=== PATIENT | female | born 1955 | race Caucasian/White ===

== ENCOUNTER 2017-08-10 08:19 | Emergency (ER) | payer OTHER ==
[2017-08-10 08:27] VITALS: BP 149/96
--- NOTE | 2017-08-10 09:02 | UC ---
Skin Complaint HPI - HPI Summary HPI Summary: FOUND AN ENGORGED TICK ATTACHED TO HER LEFT INNER THIGH THIS MORNING. REMOVED ENTIRELY AT HOME. UNKNOWN HOW LONG IT WAS ATTACHED FOR. - History of Current Complaint Chief Complaint: UCSkin Time Seen by Provider: 08/10/17 08:54 Stated Complaint: TICK BITE Hx Obtained From: Patient Onset Severity: Mild Current Severity: None Pain Intensity: 0 Pain Scale Used: 0-10 Numeric Location: Discrete - LEFT INNER THIGH Aggravating Factor(s): Nothing Alleviating Factor(s): Nothing Associated Signs & Symptoms: Positive: Negative Related History: Insect Bite/Sting - Allergy/Home Medications Allergies/Adverse Reactions: Allergies Allergy/AdvReac Type Severity Reaction Status Date / Time Penicillins Allergy Rash Verified 08/10/17 08:27 Review of Systems Constitutional: Negative Skin: Other - TICK BITE LEFT INNER THIGH Respiratory: Negative Cardiovascular: Negative Gastrointestinal: Negative All Other Systems Reviewed And Are Negative: Yes PMH/Surg Hx/FS Hx/Imm Hx Respiratory History: Asthma - Surgical History Surgical History: Yes Surgery Procedure, Year, and Place: RIGHT KNEE SURGERY - Family History Known Family History: Negative: Hypertension - Social History Alcohol Use: Rare Substance Use Type: None Smoking Status (MU): Never Smoked Tobacco Physical Exam Triage Information Reviewed: Yes Appearance: Well-Appearing, No Pain Distress, Well-Nourished Vital Signs: Initial Vital Signs Temp 96 F 08/10/17 08:25 Pulse 68 08/10/17 08:25 Resp 15 08/10/17 08:25 BP 149/96 08/10/17 08:25 Pulse Ox 100 08/10/17 08:25 Vital Signs Reviewed: Yes Eyes: Positive: Conjunctiva Clear ENT: Positive: Hearing grossly normal Neck: Positive: Supple Respiratory: Positive: No respiratory distress, No accessory muscle use Cardiovascular: Positive: Pulses Normal Abdomen Description: Positive: Soft Musculoskeletal: Positive: No Edema Neurological: Positive: Alert Psychological: Positive: Age Appropriate Behavior Skin: Negative: rashes Course/Dx - Diagnoses Provider Diagnoses: TICK BITE/LYME PEP Discharge - Sign-Out/Discharge Documenting (check all that apply): Discharge/Admit/Transfer - Discharge Plan Condition: Stable Disposition: HOME Prescriptions: Doxycycline Monohydrate [Doxycycline Monohydrate] 2 cap PO ONCE #2 cap Patient Education Materials: Tick Bite (ED) Referrals: No Primary Care Phys,NOPCP [Primary Care Provider] - Additional Instructions: You received an rx for 200mg of doxycycline for prophylaxis against Lyme disease. The Infectious Disease Society of [place] (IDSA) does not generally recommend antimicrobial prophylaxis for prevention of Lyme disease after a recognized tick bite. However, in areas that are highly endemic for Lyme disease, a single dose of doxycycline may be offered to adult patients (200 mg) who are not and to children older than 8 years of age (4 mg/kg up to a maximum dose of 200 mg) when all of the following circumstances exist: CRITERIA FOR RECEIVING PROPHYLACTIC TREATMENT FOR LYME DISEASE 1) TICK ATTACHED FOR AT LEAST 36 HRS 2) TICK IS AN ADULT OR [place] DE[place] TICK 3) YOU LIVE IN AN AREA WHERE LYME DISEASE IS PREVALENT (i.e., [place], [place], [place], [place], [place] , [place], [place], [place], [place], [place], [place], [place], [place], [place]) 4) YOU HAVE NO CONTRAINDICATION TO THE MEDICATION (DOXYCYCLINE) 5) PROPHYLAXIS IS BEGUN WITHIN 72 HRS OF TICK REMOVAL YOUR CHANCES OF DEVELOPING LYME DISEASE ARE EXTREMELY SMALL. BE VIGILANT OF YOUR SYMPTOMS AND DON'T HESITATE TO GET SEEN AGAIN IF YOU DEVELOP UNEXPLAINED FEVER, HEADACHE, JOINT PAIN, BODY ACHES, RASH OR ANY OTHER CONCERNING SYMPTOMS. Antibiotic treatment following a tick bite is not recommended as a means to prevent anaplasmosis, babesiosis, ehrlichiosis, or [place] spotted fever. There is no evidence this practice is effective, and it may simply delay onset of disease. Instead, persons who experience a tick bite should be alert for symptoms suggestive of tickborne illness and consult a physician if fever, rash, or other symptoms of concern develop. CALL THE NUMBER BELOW FOR ASSISTANCE IN ESTABLISHING WITH A PCP An additional resource available to assist in finding the appropriate physician for your health care needs is the [facility] ([facility]). You may contact them by calling [phone]. - Billing Disposition and Condition Condition: STABLE Disposition: Home
== END 2017-08-10 09:13 | disposition home or self-care (01) ==
LOC: UCEAST 08:19
DX: S70.362A Insect bite (nonvenomous), left thigh, initial encounter (principal); W57.XXXA Bitten or stung by nonvenomous insect and other nonvenomous arthropods, initial encounter; Y93.9 Activity, unspecified; Y92.9 Unspecified place or not applicable; J45.909 Unspecified asthma, uncomplicated; Z88.0 Allergy status to penicillin
CPT/HCPCS: 99212; G0463

== ENCOUNTER 2018-01-02 12:10 | Emergency (ER) | payer OTHER ==
[2018-01-02] MEDS ORDERED: Ondansetron ODT TAB* 4 MG PO ONE (12:26)
--- NOTE | 2018-01-02 12:38 | UC ---
Abdominal Pain Female HPI - HPI Summary HPI Summary: Onset of left lower quadrant abdominal pain this morning. Also reports right flank pain, headache and nausea. Vomited one time on the way here. No previous history of kidney stones. - History of Current Complaint Chief Complaint: UCAbdominalPain Stated Complaint: L SIDED PAIN Time Seen by Provider: 01/02/18 12:26 Hx Obtained From: Patient Onset/Duration: Sudden Onset, Lasting Hours, Still Present Timing: Constant Severity Initially: Moderate Severity Currently: Severe Pain Intensity: 10 Pain Scale Used: 0-10 Numeric Location: Discrete At: LLQ Radiates: Yes Radiates to: Flank Character: Sharp Aggravating Factor(s): Nothing Alleviating Factor(s): Nothing Associated Signs and Symptoms: Positive: Back Pain, Decreased Appetite, Nausea, Vomiting. Negative: Fever Allergies/Adverse Reactions: Allergies Allergy/AdvReac Type Severity Reaction Status Date / Time Penicillins Allergy Rash Verified 01/02/18 12:23 PMH/Surg Hx/FS Hx/Imm Hx Respiratory History: Asthma - Surgical History Surgical History: Yes Surgery Procedure, Year, and Place: RIGHT KNEE SURGERY - Family History Known Family History: Negative: Hypertension - Social History Alcohol Use: Rare Substance Use Type: None Smoking Status (MU): Never Smoked Tobacco Review of Systems Constitutional: Negative Respiratory: Negative Cardiovascular: Negative Gastrointestinal: Abdominal Pain, Vomiting, Nausea Genitourinary: Other - RIGHT FLANK PAIN All Other Systems Reviewed And Are Negative: Yes Physical Exam Triage Information Reviewed: Yes Appearance: Well-Nourished, Pain Distress - SEVERE. PT TEARFUL Vital Signs: Initial Vital Signs Temp 97.9 F 01/02/18 12:20 Pulse 102 01/02/18 12:20 Resp 22 01/02/18 12:20 BP 165/85 01/02/18 12:20 Pulse Ox 99 01/02/18 12:20 Laboratory Tests 01/02/18 12:27 POC Urine Color Yellow POC Urine Clarity Clear POC Urine pH 6.5 POC Ur Specif Malcolm 1.025 POC Urine Protein Negative POC Ur Glucose (UA) Negative POC Urine Ketones Negative POC Urine Blood Trace-intact A POC Urine Nitrite Negative POC Urine Bilirubin Negative POC Urine Urobilinogen 0.2 POC U Leukocyte Esteras Negative Vital Signs Reviewed: Yes Eyes: Positive: Conjunctiva Clear ENT: Positive: Hearing grossly normal Neck: Positive: Supple Respiratory: Positive: No respiratory distress, No accessory muscle use Cardiovascular: Positive: Pulses Normal Abdomen Description: Positive: Nontender, Soft, CVA Tenderness (R). Negative: CVA Tenderness (L), Distended, Guarding Bowel Sounds: Positive: Present Musculoskeletal: Positive: No Edema Neurological: Positive: Alert Psychological: Positive: Age Appropriate Behavior Skin: Negative: rashes Diagnostics - Radiology CT ABD/PELVIS W/O CONTRAST Radiology Interpretation Completed By: Radiologist Summary of Radiographic Findings: 1. NO EVIDENCE FOR ACUTE FINDING. 2. CHOLELITHIASIS. 3. FIBROID UTERUS. 4. SMALL HIATAL HERNIA. Re-Evaluation - Re-Evaluation First Eval Re-Evaluation Time: 14:10 - PT NOT BETTER AFTER ZOFRAN. CT UNREVEALING. PT TEARFUL. TO ED BY AMBULANCE Change: Unchanged Abd Pain Female Course/Dx - Course Course Of Treatment: URINE TEST WITH TRACE BLOOD. CT SCAN SHOWS GALLSTONES, FIBROID UTERUS AND SMALL HIATAL HERNIA BUT NOTHING ACUTE TO EXPLAIN PATIENT'S DISCOMFORT. DESPITE ZOFRAN PATIENT'S NAUSEA PERSISTS AND SHE COMPLAINS OF A TERRIBLE HEADACHE. PATIENT IS TEARFUL AND UPSET DURING THE ENCOUNTER. STATES SHE CANNOT TAKE NSAIDS OR TYLENOL THEY UPSET HER STOMACH. WILL SEND TO ED FOR FURTHER EVAL. PT AGREES TO HAVE FLUIDS AND TORADOL THROUGH THE IV. - Differential Dx/Diagnosis Provider Diagnoses: 1. LLQ ABDOMINAL PAIN. 2. NAUSEA/VOMITING. 3. HEADACHE - Physician Notification/Consults Discussed Care of Patient With: Miguel Ángel Saeed - TO [facility] ED BY AMBULANCE Time Discussed With Above Provider: 14:20 Instructed by Provider To: MD Will See In ED Discharge - Sign-Out/Discharge Documenting (check all that apply): Patient Departure All imaging exams completed and their final reports reviewed: Yes - Discharge Plan Condition: Stable Disposition: TRANS HIGHER LVL OF CARE FAC Prescriptions: Ondansetron ODT TAB* [Zofran Odt TAB*] 4 mg PO Q6H PRN #20 tab.odt PRN Reason: Nausea/Vomiting Referrals: No Primary Care Phys,NOPCP [Primary Care Provider] - - Billing Disposition and Condition Condition: STABLE Disposition: Trans Higher Lvl of Care Fac
[2018-01-02] MEDS ORDERED: Ketorolac INJ* 30 MG/ML 1 ML VIAL IV PUSH ONE (14:10)
[2018-01-02] MEDS ORDERED: NS 0.9% 1000 ML* 1,000 ML IV SCH (14:15)
[2018-01-02 14:18] VITALS: BP 136/68
== END 2018-01-02 14:25 | disposition short-term general hospital (02) ==
LOC: UCEAST 12:10
DX: R10.32 Left lower quadrant pain (principal); R11.2 Nausea with vomiting, unspecified; R51 Headache; K80.20 Calculus of gallbladder without cholecystitis without obstruction; D25.9 Leiomyoma of uterus, unspecified; K44.9 Diaphragmatic hernia without obstruction or gangrene; Z88.0 Allergy status to penicillin
CPT/HCPCS: 74176; 81003; 96360; 96374; 99213; A9270-GY; G0463; J1885

== ENCOUNTER → 2018-01-02 14:41 | Emergency (ER) | payer OTHER ==
[~2018-01-02 14:41] MED LIST: Ketorolac INJ* 30 MG/ML 1 ML VIAL IV PUSH ONE
--- NOTE | 2018-01-02 16:34 | ED ---
Abdominal Pain/Female - HPI Summary HPI Summary: A 62 y/o F referred from [facility] via ambulance with IV in place for further eval and RX for LLQ abd pain, right flank pain, N,V after CT abd pelvis without contrast done at [facility] showing gallstones without GB wall thickening or pericholecystic fluid, hiatal hernia, fibroid uterus. Pt presented to [facility] with c /o sharp, lower abd pain onset 0800 which has resolved upon presentation to the ED. Pt was treated with zofran ODT and ketorolac 30mg IV and IVNS at [facility] but continued to vomit so was referred to the ED for further evaluation. Pt states she was at baseline when going to sleep last night. Associated sx: chills, diaphoresis, pain in lower back, n/v/d onset 0800 this date, LEE, dizziness, fatigue. Shes had previous episodes of this abd pain. Denies CP, SOB, urinary sx. No previous hx of kidney stones, no abd surgeries. Pt last ate last night. Denies daily medications. She states being healthy otherwise. At [facility] this date, pt received Zofran 4mg PO tablet at 1235, and at 1419: Ketorolac 30mg IV, plus 1 liter normal saline. Per nurse's triage note, pt does not want to be at this hospital as her daughter here. This provider did not discuss pt's daughter' s with her. Vitals at bedside: HR is 82 bpm. BP is 142/81. Home Medications Medication Instructions Recorded Confirmed Type Ondansetron ODT TAB* [Zofran Odt 4 mg PO Q6H PRN #20 tab.odt 01/02/18 Rx TAB*] - History of Current Complaint Chief Complaint: EDAbdPain Stated Complaint: LT SIDE PAIN Time Seen by Provider: 01/02/18 16:12 Hx Obtained From: Patient, EMS, Medical Records - UCE Onset/Duration: Gradual Onset, Lasting Hours, Resolved - mostly, in ED, after UCE RX Timing: Constant Severity Initially: Moderate Severity Currently: Moderate Pain Intensity: 4 Pain Scale Used: 0-10 Numeric Location: Discrete At: LLQ, Other - lower back, reported R flank to UCE Radiates: Yes Radiates to: Back - lower Character: Sharp Aggravating Factor(s): Nothing Alleviating Factor(s): Nothing Associated Signs and Symptoms: Positive: Diaphoresis, Dizzy, Nausea, Vomiting, Diarrhea, Other: - pos: chills, LEE, fatigue. neg: SOB. Negative: Chest Pain, Urinary Symptoms Allergies/Adverse Reactions: Allergies Allergy/AdvReac Type Severity Reaction Status Date / Time Penicillins Allergy Rash Verified 01/02/18 12:23 PMH/Surg Hx/FS Hx/Imm Hx Previously Healthy: No - Pt stated to triage nurse that she hasn't gone to a doctor for years Endocrine/Hematology History: Denies: Hx Diabetes, Hx Thyroid Disease Cardiovascular History: Denies: Hx Hypertension Respiratory History: Reports: Hx Asthma Denies: Hx Chronic Obstructive Pulmonary Disease (COPD) GI History: Denies: Hx Ulcer - Surgical History Surgery Procedure, Year, and Place: RIGHT KNEE SURGERY Infectious Disease History: Yes Infectious Disease History: Reports: History Other Infectious Disease - Lyme ds Denies: Hx Hepatitis, Hx Human Immunodeficiency Virus (HIV), Traveled Outside the [place] in Last 30 Days - Family History Known Family History: Negative: Hypertension - Social History Occupation: Employed Full-time Lives: With Family Alcohol Use: None Hx Substance Use: No Substance Use Type: Reports: None Hx Tobacco Use: No Smoking Status (MU): Never Smoked Tobacco Review of Systems Positive: Chills, Fatigue, Skin Diaphoresis. Negative: Fever Negative: Chest Pain Negative: Shortness Of Breath Positive: Abdominal Pain - LLQ, Vomiting, Diarrhea, Nausea, Other - reported right flank pain to UCE Positive: other - POC urine at [facility] showed trace blood . Negative: dysuria, hematuria Positive: Myalgia - lower back pain Neurological: Other - pos: dizziness Positive: Headache All Other Systems Reviewed And Are Negative: Yes Physical Exam - Summary Physical Exam Summary: Appearance: Well-appearing, minimal pain distress, well-nourished, asleep upon entering, rouses easily, will not change into gown, but allows exam with unbuttoning shirt and unzipping pants Skin: Warm, color reflects adequate perfusion, dry Head: Normal Head/Face inspection, atraumatic Eyes: Conjunctiva clear ENT: Normal inspection Neck: Supple, no nodes, no JVD Respiratory: Lungs clear, normal breath sounds, no respiratory distress Cardio: RRR, No murmur, pulses normal, brisk capillary refill Abdomen: Soft, nontender, nondistended, no masses, no bruits. No CVAT Bowel sounds: Present Musculoskeletal: Strength Intact/ROM intact, no calf tenderness, no edema, indicates pain across low lumbar area, no spinal tenderness on palpation Psychological: Normal Neuro: Alert, muscle tone normal, no focal deficit Triage Information Reviewed: Yes Vital Signs On Initial Exam: Initial Vitals Temp Pulse Resp BP Pulse Ox 98.9 F 82 20 148/78 98 01/02/18 14:56 01/02/18 14:56 01/02/18 14:56 01/02/18 14:56 01/02/18 14:56 Vital Signs Reviewed: Yes Diagnostics - Vital Signs Vital Signs Temp Pulse Resp BP Pulse Ox 01/02/18 15:01 80 148/78 98 01/02/18 14:56 98.9 F 82 20 148/78 98 - Laboratory Result Diagrams: 01/02/18 16:57 01/02/18 16:57 Lab Statement: Any lab studies that have been ordered have been reviewed, and results considered in the medical decision making process. - Ultrasound No standard instances Ultrasound Interpretation Completed By: Radiologist Summary of Ultrasound Findings: GALLBLADDER U/S IMPRESSION: CHOLELITHIASIS WITHOUT EVIDENCE FOR ACUTE CHOLECYSTITIS. ED provider has reviewed this report. - EKG 1703 Cardiac Rate: NL - [address] Segment: Non-Specific Ectopy: None EKG Comparison: Other - No prior to compare. Summary of EKG Findings: An EKG at [address], nml QTc, and nml axis. Re-Evaluation - Re-Evaluation 1 Re-Evaluation Time: 20:09 Change: Unchanged Comment: Requesting urine prior to discharge. Pt continues to refuse to undress , states why does she need an exam. LEE is still present. No vomiting in ED. No abd pain reported. Brief PE shows abd is soft and non-tender, non-distended, and lungs are clear. Heart S1 S2 regular rhythm. Pt avoids eye contact. Given additional dose of ketorolac and zofran IV. Abdominal Pain Fem Course/Dx - Course Course Of Treatment: Pt is a 62 y/o F referred from [facility] by ambulance with dx: gallstones after presenting to [facility] with sharp, left lower abd pain and n/v/d onset 0800 which has resolved while in ED after UCE treatment with ketorolac, zofran and IV fluids. No previous hx of kidney stones, no prev abd surgeries. Reviewed CT from [facility] which showed no abnormality except gallstones, but no thickened GB wall or pericholecytic fluid, hiatal hernia, fibroid uterus. Also at [facility] this date, pt given Zofran 4mg PO tablet at 1235, and at 1419: Ketorolac 30mg IV, plus 1 liter normal saline. Gallbladder U/S in ED shows "CHOLELITHIASIS WITHOUT EVIDENCE FOR ACUTE CHOLECYSTITIS." Lab work is unremarkable except glucose: 106, BUN/C: 22.5. Allergies noted, high blood pressure noted. Pt medications reviewed this visit. Pt given additional toradol 15mg IV and zofran 4mg IV for continued LEE and low back pain. No vomiting or recurrence of abd pain or flank pain reported in the ED. UA microscopic shows no hematuria, whereas POC UA at [facility] showed trace blood. Pt is discharged with dx cholelithiasis, abd pain, acute and chronic low back pain , headache, elevated BP without dx of HTN. - Diagnoses Differential Diagnosis: Positive: ACS, Appendicitis, Diverticulitis, Gall Bladder Disease, Hepatitis, Pancreatitis, Peptic Ulcer Disease, Renal Colic, Urinary Tract Infection Provider Diagnoses: Cholelithiasis without cholecystitis, Elevated blood pressure reading without diagnosis of hypertension, Acute exacerbation of chronic low back pain, Cephalgia, Abdominal pain, Hematuria Discharge - Sign-Out/Discharge Documenting (check all that apply): Patient Departure - DC - Discharge Plan Condition: Stable Disposition: HOME Patient Education Materials: Gallstones (ED), Hematuria (ED), Acute Abdominal Pain (ED) Referrals: [facility] [Outside] [facility] REFERRAL [Outside] - 2 Days Additional Instructions: Your blood pressure reading today was 148/78, which is HYPERTENSIVE. Establish with a new primary care provider and follow-up within 4 weeks for blood pressure readings and further evaluation. If you cant find a provider, try to check your blood pressure on your own and see if its above 120/80. If so, follow up for further evaluation and treatment. RETURN TO THE EMERGENCY DEPARTMENT FOR CHANGING OR WORSENING SYMPTOMS. - Billing Disposition and Condition Condition: STABLE Disposition: Home - Attestation Statements Document Initiated by Scribe: Yes Documenting Scribe: Dontrell Dent Provider For Whom Scribe is Documenting (Include Credential): Dr. Taylor Kaufman MD Scribe Attestation: Kadeem, Dontrell Dent, scribed for Dr. Taylor Kaufman MD on 01/07/18 at 2309. Scribe Documentation Reviewed: Yes Provider Attestation: The documentation as recorded by the tedibe, Dontrell Dent accurately reflects the service I personally performed and the decisions made by me, Dr. Taylor Kaufman MD
[2018-01-02 17:15] LABS: ABS Basophils 0 10^3/ul (0-0.2); ABS Eosinophils 0 10^3/ul (0-0.6); ABS Monocytes 0.2 10^3/ul (0-0.8); ABS Neutrophils 5.9 10^3/ul (1.5-7.7); ABS Nucleated RBC 0 10^3/ul; Eosinophil % 0.1 % (0-6); Hematocrit 39 % (35-47); Hemoglobin 13.3 g/dl (12.0-16.0); Lymphocyte % 13.8 % (25-47); Mean Corpuscular HGB Conc 34 g/dl (31-36); Mean Corpuscular Hemoglobin 30 pg (27-31); Mean Corpuscular Volume 88 fL (80-97); Mean Platelet Volume 7.9 fL (7.4-10.4); Nucleated Red Blood Cells % 0.1; Platelet Count 241 10^3/ul (150-450); Red Cell Distribution Width 13 % (10.5-15); White Blood Count 7.2 10^3/ul (3.5-10.8)
[2018-01-02 17:37] LABS: EGFR Non-African American 83.4 (>60)
[2018-01-02 17:40] LABS: INR 0.96 (0.77-1.02)
[2018-01-02] MEDS: Ondansetron ODT TAB* 4 MG PO ONE ×2 (20:22→20:24)
[2018-01-02 20:30] LABS: Urine Appearance Cloudy; Urine Blood Negative (Negative); Urine Color Yellow; Urine Ketones Negative (Negative); Urine Protein Negative (Negative); Urine Specific Gravity 1.024 (1.010-1.030); Urine Urobilinogen Negative (Negative)
[2018-01-02 21:25] VITALS: BP 168/89
== END | disposition home or self-care (01) ==
LOC: ED 14:41
DX: K80.20 Calculus of gallbladder without cholecystitis without obstruction (principal); M54.5 Low back pain; R51 Headache; R31.9 Hematuria, unspecified; R03.0 Elevated blood-pressure reading, without diagnosis of hypertension; Z88.0 Allergy status to penicillin
CPT/HCPCS: 36415; 76705; 80053; 81003; 82150; 82550; 83605; 83690; 83735; 84484; 85025; 85610; 85730; 86140; 93005; 96374; 99283; A9270-GY; J1885